=== PATIENT | female | born 1955 | race Caucasian/White ===

== ENCOUNTER → 2022-05-12 11:19 | Outpatient (BNVA) | payer MEDICARE, MEDICAID, SELFPAY | PROVIDERS: PCP Physical Medicine & Rehabilitation; Visit Provider Internal Medicine | DX: M25.552 Pain in left hip (principal); M96.1 Postlaminectomy syndrome, not elsewhere classified | CPT/HCPCS: 20610; 99202; J2795; J3301 ==

== ENCOUNTER → 2022-06-13 09:23 | Outpatient (BNVA) | payer MEDICARE, MEDICAID, SELFPAY | PROVIDERS: PCP Physical Medicine & Rehabilitation; Visit Provider Internal Medicine | DX: M25.552 Pain in left hip (principal) | CPT/HCPCS: 99212 ==

== ENCOUNTER 2024-03-21 08:38 | Outpatient (AMB) | payer MEDICARE, MEDICAID, SELFPAY ==
--- OUTSIDE RECORDS SUMMARY | 2024-03-21 08:45 | XMS_ITS | Continuity of Care Document ---
Author Organization [facility] Address [address] [place] [address] [address] [place], [place] Phone [phone] Care Team Providers Care Header Setup Operator Name Role Phone LISETTE LUCIANO M.D. Care Team Information Rec eiver Unavailable Social History Type Date Description Comments Sex Unknown
[2024-03-21 08:51] VITALS: BP 158/71; PULSE 82; O2SAT 95
--- NOTE | 2024-03-21 08:51 | A.OFFVIS_ITS ---
Vital Signs 03/21/24 08:51 Weight 227 lb BP 158/71 H Blood Pressure Location Lt brachial Position Sitting Pulse 82 Pulse Source Pulse Oximeter Pulse Oximetry (%) 95 Oxygen Delivery Method Room Air Intake Visit Reasons: Chronic pain Allergies amlodipine Adverse Reaction (Severe, Verified 03/21/24 08:52) elevates BP Medication List - Last Reconciled 03/21/24 by Aminata Pal, [employer] aripiprazole 2 mg PO DAILY duloxetine 60 mg PO DAILY gabapentin mg PO gabapentin 1,200 mg PO DAILY hydralazine 50 mg PO BID hydrochlorothiazide 12.5 mg PO BID hydroxyzine HCl 25 mg PO BID ixekizumab (Taltz Autoinjector) 80 mg subcut Q3W lamotrigine 200 mg PO DAILY meloxicam 7.5 mg PO DAILY methotrexate sodium 12.5 mg PO QWEEK montelukast 10 mg PO BEDTIME morphine ER 15 mg PO QID naloxone 4 mg/actuation 1 spray intranasal Q2M PRN pantoprazole 40 mg PO DAILY tizanidine 4 mg PO TID trazodone 100 mg PO BEDTIME HPI Comments Details: Rosemarie is very pleasant 68 years old female who presents in my office with complains on pain in the cervical thoracic and lumbar spine. She reports that this pain bothers her that than since teenager years. She reported that in the past she had several surgeries performed by Dr. Tillman on the lower back. She remembers that those surgeries were on L4-5 laminectomy with fusion. She gilberto use of her pain can not sleep normally, she can not do activities of daily living, she can take care of herself, she can not function normally. She is working part-time. Weather changes in movements aggravate her pain. Called application make her pain slightly better. The pain is most severe in the morning and less severe in the afternoon at 6 p.m.. In terms of tissue damage she describes her pain as tiring, exhausting, fearful, fried full, terrifying, tight, squeezing, tearing sensation. For treatment of her pain she takes morphine 15 mg 4 times a day for past 5 years. Nevro tried NSAIDs she never tried Tylenol. She had images performed at [facility] unfortunately those are not available for me today. Her past medical history is significant for history of acute kidney failure x3 unknown reason history of asthma history of hypertension history of depression and anxiety she has her own psychiatrist. She reports surgical history of 2 back surgeries in 2011 and 2014. Social history works part-time denies smoking cigarettes denies drinking alcohol, admits caffeinated beverages including soda.!. Denies recreational drugs. [facility] Medical History (Updated 03/21/24 @ 09:20 by Favian Murphy MD) Ankylosing spondylitis HTN (hypertension) Anxiety Depression Review of Systems Const All systems reviewed & are unremarkable except as noted in HPI and below ENT Reports Normal hearing present Neuro Reports Normal hearing present, Denies Abnormal speech present, Denies confusion and Denies Sensory deficit (Neuro) Psych Denies confusion Physical Exam Vital Signs: Last Vital Signs Pulse 82 03/21/24 08:51 BP 158/71 H 03/21/24 08:51 Pulse Ox 95 03/21/24 08:51 Oxygen Delivery Method Room Air 03/21/24 08:51 Const General: no acute distress; No confusion Nutritional Appearance: obese morbidly obese Orientation/consciousness: patient oriented x3 and No confusion Eyes General: appearance normal, both eyes and all related structures Pupils: Equal, round and reactive pupils present EOM: EOMs intact bilaterally Neck Neck: Yes full ROM Chest Chest palpation & inspection: normal inspection of the chest Resp Effort & Inspection: normal respiratory effort, able to speak in complete sentences, normal respiratory pattern, no audible wheezes and no cough Cardio Jugular venous distension: no JVD GI Inspection: Yes normal to inspection Neuro General: patient oriented x3, gait normal and No confusion Cranial nerves: Yes CN's II-XII intact bilaterally, Yes Equal, round and reactive pupils present, Yes Normal hearing present and Yes Ability to bilaterally elevate shoulders present Speech: No Abnormal speech present Gait exam (Neuro): Normal gait present Motor exam (neuro): 5/5 motor strength present throughout Sensory Exam: No Sensory deficit (Neuro) Extrem General: No pedal edema Psych Speech and movement: Normal speech and movement present Affect: normal affect Attitude: cooperative Thought process: Normal thought process present Thought content: Normal thought content present Insight: Good insight present (Psych) Judgement: Good judgement present (Psych) Assessment & Plan Assessment & Plan (1) Postlaminectomy syndrome: Code(s): M96.1 - Postlaminectomy syndrome, not elsewhere classified Category: Medical (2) Chronic pain syndrome: Code(s): G89.4 - Chronic pain syndrome Category: Medical Plan Initially I wanted to start this patient on ibuprofen however later on I found out that she is taking methotrexate and therefore ibuprofen is contraindicated for her. Therefore she would continue only on her morphine. She can also take Tylenol. I recommended her to decide whether she wants to go for psychological evaluation with the [facility] or she wants her psychiatrist to perform psychological evaluation. If she will decide to go for [facility] psych evaluation she has a brochure to give a telephone call to them. I briefly described to her neuromodulation as the way to treat her axial lower back pain it could be Nevro SCS versus intrathecal pain pump [employer]. The appointment will be scheduled soon as patient will past psychological evaluation. Patient Instructions: I here by testify that I spent 32 minutes in conversation with this patient as well as planning her care and organizing this note. Coding Level of Care Code Est Pt Level 4 (50289) Diagnoses Postlaminectomy syndrome M96.1 Chronic pain syndrome G89.4
== END 2024-03-21 09:15 | disposition home or self-care (01) ==
PROVIDERS: PCP Family Medicine; Visit Provider Anesthesiology
DX: M96.1 Postlaminectomy syndrome, not elsewhere classified (principal); G89.4 Chronic pain syndrome
CPT/HCPCS: 99214

== ENCOUNTER → 2024-03-21 08:38 | Outpatient (BNVA) | payer MEDICARE, MEDICAID, SELFPAY | PROVIDERS: PCP Family Medicine; Visit Provider Anesthesiology | DX: G89.4 Chronic pain syndrome (principal); M96.1 Postlaminectomy syndrome, not elsewhere classified | CPT/HCPCS: 99212 ==